=== PATIENT | female | born 1965 | race African-American/Black ===

== ENCOUNTER 2017-07-19 20:14 | Inpatient (IN) ==
[2017-07-19] MEDS ORDERED: SODIUM CHLORIDE 0.9% 500 ML IV STA (21:15)
[2017-07-19] MEDS ORDERED: ONDANSETRON 4 MG/2 ML VIAL IV STA (21:15)
[2017-07-19] MEDS ORDERED: METOCLOPRAMIDE 10 MG/2 ML VIAL IV STA (21:15)
[2017-07-19] MEDS ORDERED: PANTOPRAZOLE 40 MG VIAL IV STA (21:15)
[2017-07-19] MEDS ORDERED: PIPERACILLIN/TAZOBACTAM 3,375 MG in SODIUM CHLORIDE 0.9% 100 ML IV STA ×2 (21:18→21:26)
[2017-07-19 22:00] LABS: Basophils % 0.5 % (0.0-0.8); Eosinophils # 0.2 10*3/uL (0.0-0.87); Eosinophils % 2.7 % (0.00-10.9); Hematocrit 46.5 VOL% (35.7-47.0); Hemoglobin 15.2 GM/DL (12.0-16.0); Immature Granulocytes % 0.4 %; Immature Granulocytes Absolute 0.02 #; Lymphocytes # 1.6 10*3/uL (1.4-4.0); Lymphocytes % 29.3 % (21.3-54.2); Mean Corpuscular HGB Conc 32.7 GM/DL (32-36); Mean Corpuscular Hemoglobin 29 PG (27-34); Mean Corpuscular Volume 87.2 FL (87-102); Mean Platelet Volume 12.2 FL (9.6-12.0); Monocytes # 0.5 10*3/uL (0.11-0.8); Monocytes % 8.1 % (1.7-12.7); Neutrophils # 3.3 10*3/uL (1.4-7.4); Platelet Count 235 T/CUMM (130-400); Red Blood Count 5.33 MC/CUMM (3.8-5.5); Red Cell Distribution Width 13.4 % (9.3-17.3); White Blood Count 5.5 T/CUMM (4-12)
[2017-07-19 22:20] LABS: Albumin 3.5 G/DL (3.4-5.0); Bilirubin,Total 0.6 MG/DL (0.2-1.0); Calcium 8.7 MG/DL (8.5-10.1); Osmolality,Calculated 278.4 MOS/KG (273-304); Potassium 3.9 MMOL/L (3.5-5.1); Total Protein 8.4 G/DL (6.4-8.3)
[2017-07-19] MEDS ORDERED: ONDANSETRON 4 MG/2 ML VIAL IV PRN (23:32)
[2017-07-20] MEDS: LACTATED RINGERS 1,000 ML IV SCH ×3 (03:35→22:27)
[2017-07-20] MEDS ORDERED: MORPHINE 4 MG/1 ML VIAL IV ONE (05:00)
[2017-07-20 06:02] LABS: Apearance,Urine CLEAR (Clear); Bacteria,Urine Few /HPF (Few); Bilirubin,Urine Negative (Negative); Blood, Urine Negative (Negative); Glucose,Urine (UA) Negative (Negative); Ketones,Urine Negative (Negative); Mucus,Urine Occasional /LPF (Occasional); Nitrite,Urine Negative (Negative); Protein,Urine Negative; RBC,Urine 1 /HPF (0-4); Squamous Epithelial Cell,Urine Occasional /HPF (0-10); Urine Color Yellow (Yellow); Urine Specific Gravity 1.018 (1.001-1.035); WBC,Urine 1 /HPF (0-6)
[2017-07-20] MEDS: METOCLOPRAMIDE 10 MG/2 ML VIAL IV SCH ×2 (06:32→12:10)
[2017-07-20] MEDS ORDERED: cefOXitin 2,000 MG in SYRINGE 1 EACH IV ONE (07:30)
[2017-07-20] MEDS ORDERED: PANTOPRAZOLE 40 MG VIAL IV SCH (09:00)
[2017-07-20] MEDS ORDERED: TISSUE ADHESIVE 1 EACH APPLICATOR TOP ONE (09:25)
[2017-07-20] MEDS ORDERED: LIDOCAINE 1%/EPI INJ 20 ML VIAL ONE (09:25)
[2017-07-20] MEDS ORDERED: MEPERIDINE 25 MG/1 ML VIAL ONE (11:25)
[2017-07-20] MEDS ORDERED: ONDANSETRON 4 MG/2 ML VIAL ONE ×2 (11:25→12:30)
[2017-07-20] MEDS ORDERED: ONDANSETRON 4 MG/2 ML VIAL IV PRN ×2 (11:30→12:10)
[2017-07-20] MEDS ORDERED: MEPERIDINE 25 MG/1 ML VIAL IV PRN (11:30)
[2017-07-20] MEDS ORDERED: FAMOTIDINE 20 MG TABLET PO PRN (12:10)
[2017-07-20] MEDS ORDERED: CETIRIZINE 10 MG TABLET PO PRN (12:10)
[2017-07-20] MEDS ORDERED: PROMETHAZINE 25 MG/1 ML VIAL IM PRN (12:10)
[2017-07-20] MEDS ORDERED: PROPOFOL 200 MG/20 ML VIAL IV ONE (12:29)
[2017-07-20] MEDS ORDERED: MIDAZOLAM 2 MG/2 ML VIAL ONE (12:30)
[2017-07-20] MEDS ORDERED: SEVOFLURANE 1 UNIT/15 MINUTE INH ONE (12:30)
[2017-07-20] MEDS ORDERED: NEOSTIGMINE 10 MG/10 ML VIAL ONE (12:30)
[2017-07-20] MEDS ORDERED: ROCURONIUM 100 MG/10 ML VIAL IV ONE (12:30)
[2017-07-20] MEDS ORDERED: fentaNYL 100 MCG/2 ML VIAL ONE (12:30)
[2017-07-20] MEDS ORDERED: GLYCOPYRROLATE 0.4 MG/2 ML VIAL ONE (12:30)
[2017-07-20] MEDS: MORPHINE 4 MG/1 ML VIAL IV PRN (13:01)
[2017-07-21] MEDS: MORPHINE 4 MG/1 ML VIAL IV PRN (00:02)
[2017-07-21] MEDS: LACTATED RINGERS 1,000 ML IV SCH ×3 (03:24→12:10)
[2017-07-21] MEDS ORDERED: ENOXAPARIN 40 MG/0.4 ML SYRINGE SUBCUT SCH (05:54)
[2017-07-21] MEDS ORDERED: LEVOTHYROXINE 50 MCG TABLET PO SCH (07:00)
[2017-07-21 07:32] VITALS: BP 136/70
== END 2017-07-21 11:27 | disposition home or self-care (01) | DRG 419 ==
LOC: N.ED 20:14 → N.EDINP 23:31 → N.3E 23:52
PROVIDERS: ADMIT Surgery; ATTEND Surgery
PROC: LAPCHOL (2017-07-20 10:12)

== ENCOUNTER 2017-12-23 04:16 | Inpatient (IN) ==
[2017-12-23] MEDS ORDERED: FAMOTIDINE 20 MG/2 ML VIAL IV STA (06:20)
[2017-12-23] MEDS ORDERED: diphenhydrAMINE 50 MG/1 ML VIAL IV STA (06:20)
[2017-12-23] MEDS ORDERED: methylPREDNISolone SOD SUC 125 MG/2 ML VIAL IV STA (06:21)
[2017-12-23] MEDS ORDERED: ROCURONIUM 100 MG/10 ML VIAL IV ONE (06:38)
[2017-12-23] MEDS ORDERED: ETOMIDATE 20 MG/10 ML VIAL IV ONE (06:38)
[2017-12-23 08:44] LABS: Basophils % 0.5 % (0.0-0.8); Eosinophils # 0.2 10*3/uL (0.0-0.87); Eosinophils % 2.8 % (0.00-10.9); Hematocrit 41.8 VOL% (35.7-47.0); Immature Granulocytes % 0.4 %; Immature Granulocytes Absolute 0.02 #; Lymphocytes # 1.7 10*3/uL (1.4-4.0); Lymphocytes % 29.6 % (21.3-54.2); Mean Corpuscular HGB Conc 31.1 GM/DL (32-36); Mean Corpuscular Hemoglobin 28 PG (27-34); Mean Corpuscular Volume 89.1 FL (87-102); Mean Platelet Volume 12.3 FL (9.6-12.0); Monocytes # 0.6 10*3/uL (0.11-0.8); Neutrophils # 3.2 10*3/uL (1.4-7.4); Neutrophils % 56.7 % (38.7-73.9); Platelet Count 257 T/CUMM (130-400); Red Blood Count 4.69 MC/CUMM (3.8-5.5); Red Cell Distribution Width 13.5 % (9.3-17.3); White Blood Count 5.7 T/CUMM (4-12)
[2017-12-23 09:09] LABS: Albumin 3.9 G/DL (3.4-5.0); Bilirubin,Total 0.6 MG/DL (0.2-1.0); Calcium 9.2 MG/DL (8.5-10.1); Osmolality,Calculated 278.3 MOS/KG (273-304); Total Protein 8.7 G/DL (6.4-8.3)
[2017-12-23 10:45] VITALS: BP 154/79
[2017-12-23] MEDS ORDERED: ACETAMINOPHEN 325 MG TABLET PO PRN (10:49)
[2017-12-23] MEDS ORDERED: ENOXAPARIN 40 MG/0.4 ML SYRINGE SUBCUT SCH (11:00)
[2017-12-23] MEDS: SODIUM CHLORIDE 0.9% 1,000 ML IV SCH ×2 (11:10→20:43)
[2017-12-23] MEDS: FLUTICASONE 50 MCG NASAL SPRAY 16 GM BOTTLE BOTH NARES SCH (11:11)
[2017-12-23] MEDS: predniSONE 10 MG TABLET PO SCH ×2 (11:11→20:42)
[2017-12-23] MEDS: CETIRIZINE 10 MG TABLET PO SCH (11:11)
[2017-12-23] MEDS: FAMOTIDINE 20 MG TABLET PO SCH ×2 (11:11→20:42)
[2017-12-24 04:13] LABS: Basophils % 0.1 % (0.0-0.8); Hematocrit 37.3 VOL% (35.7-47.0); Immature Granulocytes % 0.7 %; Immature Granulocytes Absolute 0.11 #; Lymphocytes # 1.5 10*3/uL (1.4-4.0); Lymphocytes % 10.3 % (21.3-54.2); Mean Corpuscular HGB Conc 32.2 GM/DL (32-36); Mean Corpuscular Hemoglobin 28 PG (27-34); Mean Corpuscular Volume 88.4 FL (87-102); Mean Platelet Volume 13.1 FL (9.6-12.0); Monocytes # 0.7 10*3/uL (0.11-0.8); Monocytes % 4.8 % (1.7-12.7); Neutrophils # 12.4 10*3/uL (1.4-7.4); Neutrophils % 84.1 % (38.7-73.9); Platelet Count 277 T/CUMM (130-400); Red Blood Count 4.22 MC/CUMM (3.8-5.5); Red Cell Distribution Width 13.4 % (9.3-17.3); White Blood Count 14.7 T/CUMM (4-12)
[2017-12-24] MEDS ORDERED: LEVOTHYROXINE 100 MCG TABLET PO SCH (07:00)
[2017-12-24] MEDS: SODIUM CHLORIDE 0.9% 1,000 ML IV SCH (09:21)
[2017-12-24] MEDS: predniSONE 10 MG TABLET PO SCH (09:22)
[2017-12-24] MEDS: CETIRIZINE 10 MG TABLET PO SCH (09:22)
[2017-12-24] MEDS: FAMOTIDINE 20 MG TABLET PO SCH (09:22)
[2017-12-24] MEDS: FLUTICASONE 50 MCG NASAL SPRAY 16 GM BOTTLE BOTH NARES SCH (09:22)
== END 2017-12-24 10:38 | disposition home or self-care (01) | DRG 916 ==
LOC: N.ED 04:16 → N.EDINP 09:13 → N.ICU 09:43
PROVIDERS: ADMIT Internal Medicine; ATTEND Internal Medicine